=== PATIENT | male | born 1965 | race Caucasian/White ===

== ENCOUNTER 2018-05-21 14:30 | Emergency (ER) | payer OTHER, MEDICARE ==
--- NOTE | 2018-05-21 15:32 | ER Document Report ---
ED Medical Screen (RME) - General Chief Complaint: Chest Tightness Stated Complaint: LEFT LEG PAIN, LIGHT HEADED,NECK PAIN Time Seen by Provider: 05/21/18 15:25 Mode of Arrival: Wheelchair Information source: Patient Notes: 52-year-old male history of DVTs, coronary artery disease, hypertension, obstructive sleep apnea who presents to the emergency room with left calf and popliteal pain. Patient is concerned about a DVT. His medicines include Plavix and aspirin. He denies any chest pain or shortness of breath. He drove up from [employer] 3 weeks ago. Symptoms began yesterday. TRAVEL OUTSIDE OF THE [place] IN LAST 30 DAYS: No - Related Data Allergies/Adverse Reactions: No Known Allergies Allergy (Verified 05/21/18 14:31) Past Medical History - Social History Chew tobacco use (# tins/day): No Frequency of alcohol use: None Drug Abuse: None Renal/ Medical History: Denies: Hx Peritoneal Dialysis Physical Exam - Vital signs Vitals: Temp Pulse Resp BP Pulse Ox 98.3 F 69 20 109/70 93 05/21/18 14:47 05/21/18 14:47 05/21/18 14:47 05/21/18 14:47 05/21/18 14:47 Course - Vital Signs Vital signs: Temp Pulse Resp BP Pulse Ox 98.3 F 69 20 109/70 93 05/21/18 14:47 05/21/18 14:47 05/21/18 14:47 05/21/18 14:47 05/21/18 14:47
[2018-05-21] MEDS ORDERED: MORPHINE SULFATE 10 MG/ML INJ IV ONE (16:04)
--- NOTE | 2018-05-21 16:04 | ER Document Report ---
ED General - General Chief Complaint: Chest Tightness Stated Complaint: LEFT LEG PAIN, LIGHT HEADED,NECK PAIN Time Seen by Provider: 05/21/18 15:25 Mode of Arrival: Wheelchair Information source: Patient Notes: 52-year-old male 3 previous DVTs presents with complaints of left calf swelling and pain. Patient is on Plavix and baby aspirin for coronary artery disease and coronary stents. States he last had a DVT a year ago was put on Xarelto for only 2 weeks and then discharged off of it. Patient denies any any chest pain shortness of breath, it is noted on the previous provider notes that the patient had shortness of breath but he denies at this point. Patient drove here from [place] 3 weeks ago TRAVEL OUTSIDE OF THE [place] IN LAST 30 DAYS: No - HPI Onset: This morning Onset/Duration: Sudden Quality of pain: Sharp Severity: Moderate Pain Level: Denies Associated symptoms: Leg swelling Exacerbated by: Movement, Walking Relieved by: Denies Similar symptoms previously: Yes Recently seen / treated by doctor: Yes - Related Data Allergies/Adverse Reactions: No Known Allergies Allergy (Verified 05/21/18 14:31) Past Medical History - General Information source: Patient - Social History Smoking Status: Current Some Day Smoker Cigarette use (# per day): Yes Chew tobacco use (# tins/day): No Smoking Education Provided: No Frequency of alcohol use: None Drug Abuse: None Family History: Reviewed & Not Pertinent Patient has suicidal ideation: No Patient has homicidal ideation: No Renal/ Medical History: Denies: Hx Peritoneal Dialysis Review of Systems - Review of Systems Notes: REVIEW OF SYSTEMS: CONSTITUTIONAL : Denies fever, chills, or sweats. Denies recent illness. EENT: Denies eye, ear, throat, or mouth pain or symptoms. Denies nasal or sinus congestion or discharge. Denies throat, tongue, or mouth swelling or difficulty swallowing. CARDIOVASCULAR: Denies chest pain. Denies palpitations or racing or irregular heart beat. Denies ankle edema. RESPIRATORY: Denies cough, cold, or chest congestion. Denies shortness of breath, difficulty breathing, or wheezing. GASTROINTESTINAL: Denies abdominal pain or distention. Denies nausea, vomiting , or diarrhea. Denies blood in vomitus, stools, or per rectum. Denies black, tarry stools. Denies constipation. GENITOURINARY: Denies difficulty urinating, painful urination, burning, frequency, blood in urine, or discharge. MUSCULOSKELETAL: Admits to left leg pain swelling SKIN: Denies rash, lesions or sores. HEMATOLOGIC : Denies easy bruising or bleeding. LYMPHATIC: Denies swollen, enlarged glands. NEUROLOGICAL: Denies confusion or altered mental status. Denies passing out or loss of consciousness. Denies dizziness or lightheadedness. Denies headache. Denies weakness or paralysis or loss of use of either side. Denies problems with gait or speech. Denies sensory loss, numbness, or tingling. Denies seizures. PSYCHIATRIC: Denies anxiety or stress. Denies depression, suicidal ideation, or homicidal ideation. ALL OTHER SYSTEMS REVIEWED AND NEGATIVE. Dictation was performed using [employer] voice recognition software PHYSICAL EXAMINATION: GENERAL: Well-appearing, well-nourished and in no acute distress. HEAD: Atraumatic, normocephalic. EYES: Pupils equal round and reactive to light, extraocular movements intact, sclera anicteric, conjunctiva are normal. ENT: Nares patent, oropharynx clear without exudates. Moist mucous membranes. NECK: Normal range of motion, supple without lymphadenopathy LUNGS: Breath sounds clear to auscultation bilaterally and equal. No wheezes rales or rhonchi. HEART: Regular rate and rhythm without murmurs ABDOMEN: Soft, nontender, nondistended abdomen. No guarding, no rebound. No masses appreciated. Musculoskeletal: Pain upon palpation of the calf on the left NEUROLOGICAL: Cranial nerves grossly intact. Normal speech, normal gait. Normal sensory, motor exams PSYCH: Normal mood, normal affect. SKIN: Warm, Dry, normal turgor, no rashes or lesions noted. Physical Exam - Vital signs Vitals: Temp Pulse Resp BP Pulse Ox 98.3 F 69 20 109/70 93 05/21/18 14:47 05/21/18 14:47 05/21/18 14:47 05/21/18 14:47 05/21/18 14:47 Course - Re-evaluation Re-evalutation: 05/21/18 16:14 Patient's presentation is most consistent with a DVT, I do not understand why the patient is not on significant blood thinners 05/21/18 17:47 Patient's workup is quite benign, however I still do not understand why the patient is not on any blood thinners I will place the patient to have a referral with hematology After performing a Medical Screening Examination, I estimate there is LOW risk for RUPTURED ESOPHAGUS, PNEUMOTHORAX, PULMONARY EMBOLISM, ACUTE CORONARY SYNDROME, OR THORACIC AORTIC DISSECTION, thus I consider the discharge disposition reasonable. I have reevaluated this patient multiple times and no significant life threatening changes are noted. The patient and I have discussed the diagnosis and risks, and we agree with discharging home with close follow-up. We also discussed returning to the Emergency Department immediately if new or worsening symptoms occur. We have discussed the symptoms which are most concerning (e.g., bloody sputum, worsening pain or shortness of breath) that necessitate immediate return. - Vital Signs Vital signs: Temp Pulse Resp BP Pulse Ox 98.3 F 69 18 125/82 94 05/21/18 14:47 05/21/18 14:47 05/21/18 17:36 05/21/18 17:36 05/21/18 17:36 - Laboratory Result Diagrams: 05/21/18 16:02 05/21/18 16:02 Laboratory results interpreted by me: 05/21/18 05/21/18 16:02 16:02 RBC 5.78 H Hgb 17.2 H Creatine Kinase 305 H - Diagnostic Test Radiology reviewed: Image reviewed, Reports reviewed Discharge - Discharge Clinical Impression: Pain in leg, unspecified Qualifiers: Laterality: left Qualified Code(s): M79.605 - Pain in left leg Condition: Stable Disposition: HOME, SELF-CARE Instructions: Leg Pain Nonspecific ([facility]) Additional Instructions: Recommendations: Below are listed 3 primary care physicians who are affiliated with this hospital. In addition to their offices, these physicians will see you in the hospital if you are ever admitted. Dr Mahoney Address: [address] , [place] [address] Dr Larose Address: [address] , [place] [address] Dr. Dotty Dumas [address], [place] [phone] Referrals: ROBERTA AMBROCIO MD [ACTIVE STAFF] - Follow up tomorrow
[2018-05-21 16:13] LABS: ABSOLUTE EOSINOPHILS # (AUTO) 0.1 10^3/uL (0.0-0.6); ABSOLUTE LYMPHOCYTES (AUTO) 1.9 10^3/uL (0.5-4.7); ABSOLUTE MONOCYTES (AUTO) 0.7 10^3/uL (0.1-1.4); ABSOLUTE NEUT (AUTO) 4.3 10^3/uL (1.7-8.2); BASOPHILS % (AUTO) 0.7 % (0-2); EOSINOPHILS % (AUTO) 1.4 % (0-6); HEMATOCRIT 50.1 % (37.9-51.0); HEMOGLOBIN 17.2 g/dL (13.5-17.0); MEAN CORPUSCULAR HEMOGLOBIN 29.9 pg (27.0-33.4); MEAN CORPUSCULAR HGB CONC 34.5 g/dL (32.0-36.0); MEAN CORPUSCULAR VOLUME 87 fl (80-97); MONOCYTES % (AUTO) 9.4 % (3-13); PLATELET COUNT 191 10^3/uL (150-450); RED BLOOD COUNT 5.78 10^6/uL (4.35-5.55); RED CELL DISTRIBUTION WIDTH 13.9 % (11.5-14.0); SEGMENTED NEUTROPHILS % (AUTO) 61.5 % (42-78); TOTAL CELLS COUNTED % (AUTO) 100 %
[2018-05-21 17:14] LABS: ALANINE AMINOTRANSFERASE 33 U/L (21-72); ALBUMIN 3.8 g/dL (3.5-5.0); ALKALINE PHOSPHATASE 70 U/L (38-126); ANION GAP 12 (5-19); ASPARTATE AMINO TRANSFERASE 22 U/L (17-59); BILIRUBIN,DIRECT 0.3 mg/dL (0.0-0.4); BILIRUBIN,TOTAL 0.6 mg/dL (0.2-1.3); BLOOD UREA NITROGEN 11 mg/dL (7-20); CARBON DIOXIDE 22 mmol/L (22-30); CHLORIDE 107 mmol/L (98-107); CREATINE KINASE 305 U/L (55-170); GLUCOSE 92 mg/dL (75-110); POTASSIUM 4.4 mmol/L (3.6-5.0); SODIUM 141.1 mmol/L (137-145); TOTAL PROTEIN 6.3 g/dL (6.3-8.2)
[2018-05-21 17:26] LABS: CREATINE KINASE MB 2.61 ng/mL (<4.55); TROPONIN I < 0.012 ng/mL
--- NOTE | 2018-05-21 17:27 | RADIOLOGY REPORT (SQ) ---
EXAM DESCRIPTION: VENOUS UNILATERAL LOWER COMPLETED DATE/TIME: 05/21/2018 5:20 pm REASON FOR STUDY: lle swelling COMPARISON: None. TECHNIQUE: Dynamic and static soler scale and color images acquired of the left leg venous system. Se lected spectral images acquired with additional compression and augmentation maneuvers. The contralat eral common femoral vein and saphenofemoral junction were also imaged. Images stored on PACS. LIMITATIONS: None. FINDINGS: COMMON FEMORAL: Normal phasicity, compression and augmentation. No visualized echogenic ma terial on soler scale. No defects on color images. FEMORAL: Normal compression and augmentation. No visualized echogenic material on soler scale. No defe cts on color images. POPLITEAL: Normal compression, augmentation. No visualized echogenic material on soler scale. No defec ts on color images. CALF VESSELS: Normal compression, augmentation. No visualized echogenic material on soler scale. No de fects on color images. GSV and SSV: Normal compression, augmentation. No visualized echogenic material on soler scale. No def ects on color images. ANY DEEP VENOUS INSUFFICIENCY: Not evaluated. ANY EVIDENCE OF POPLITEAL CYST: No. OTHER: No other significant finding. CONTRALATERAL COMMON FEMORAL VEIN AND SAPHENOFEMORAL JUNCTION: Normal phasicity, compression and augmentation. No visualized echogenic material on soler scale. No de fects on color images. IMPRESSION: NO EVIDENCE DVT OR SVT IN THE LEFT LEG. TECHNICAL DOCUMENTATION: JOB ID: [id number] [email or web address]- All Rights Reserved Reading location - IP/workstation name: [email or web address]
--- NOTE | 2018-05-21 18:32 | EKG REPORT ---
SEVERITY:- ABNORMAL ECG - SINUS RHYTHM PROBABLE INFERIOR INFARCT, AGE INDETERMINATE : Confirmed by: Kristen Mckenzie MD 21-May-2018 18:31:00
[2018-05-21 18:37] VITALS: BP 124/78
== END 2018-05-21 18:00 | disposition home or self-care (01) ==
LOC: ER 14:30
DX: M79.662 Pain in left lower leg (principal); M79.89 Other specified soft tissue disorders; I25.10 Atherosclerotic heart disease of native coronary artery without angina pectoris; Z95.5 Presence of coronary angioplasty implant and graft; Z79.02 Long term (current) use of antithrombotics/antiplatelets; Z79.82 Long term (current) use of aspirin; Z86.718 Personal history of other venous thrombosis and embolism; F17.210 Nicotine dependence, cigarettes, uncomplicated
CPT/HCPCS: 93005; 99284; 96374; 36415; 82553; 82550; 85025; 80053; 84484; 93971; 93010; J2270

== ENCOUNTER 2018-06-15 20:45 | Emergency (ER) | payer OTHER, MEDICARE ==
[2018-06-15 23:42] LABS: APPEARANCE,URINE CLEAR; BILIRUBIN,URINE NEGATIVE (NEGATIVE); COLOR,URINE YELLOW; GLUCOSE, URINE NEGATIVE (NEGATIVE); KETONES,URINE NEGATIVE (NEGATIVE); LEUKOCYTE ESTERASE,URINE NEGATIVE (NEGATIVE); NITRITE,URINE NEGATIVE (NEGATIVE); PROTEIN,URINE NEGATIVE (NEGATIVE); URINE SPECIFIC GRAVITY 1.019
[2018-06-15] MEDS ORDERED: KETOROLAC TROMETHAMINE INJ/PF 30 MG/1 ML SDV IV ONE (23:51)
[2018-06-15] MEDS ORDERED: ONDANSETRON HCL INJ/PF 4 MG/2 ML SDV IV ONE (23:51)
[2018-06-15] MEDS ORDERED: DIAZEPAM INJ 10 MG/2 ML DISP.SYRIN IV ONE (23:52)
--- NOTE | 2018-06-15 23:53 | ER Document Report ---
ED General - General Mode of Arrival: Ambulatory Information source: Patient TRAVEL OUTSIDE OF THE [place] IN LAST 30 DAYS: No <DAMIEN BARKLEY - Last Filed: 06/16/18 00:42> <JONATAN SUMMERS - Last Filed: 06/16/18 02:16> - General Chief Complaint: Flank Pain Stated Complaint: BACK PAIN Time Seen by Provider: 06/15/18 22:58 Notes: 52-year-old male that presents to the emergency department today with complaints of left sided flank pain. Patient states it hurts to move as well. Patient has had the pain for approximately 5 days. Patient states he has a history of UTIs but no history of kidney stones. Patient denies any cough or shortness of breath. (DAMIEN BARKLEY) - Related Data Allergies/Adverse Reactions: No Known Allergies Allergy (Verified 05/21/18 14:31) Past Medical History - General Information source: Patient - Social History Smoking Status: Current Some Day Smoker Cigarette use (# per day): Yes Frequency of alcohol use: Social Drug Abuse: None Lives with: Family Family History: Reviewed & Not Pertinent - Past Medical History Cardiac Medical History: Reports: Hx Hypercholesterolemia GI Medical History: Reports: Hx Gastroesophageal Reflux Disease Past Surgical History: Reports: Hx Cardiac Surgery - STENT <DAMIEN BARKLEY - Last Filed: 06/16/18 00:42> Review of Systems - Review of Systems Constitutional: No symptoms reported EENT: No symptoms reported Cardiovascular: No symptoms reported Respiratory: denies: Cough, Short of breath Gastrointestinal: No symptoms reported Genitourinary: See HPI, Flank pain - left Male Genitourinary: No symptoms reported Musculoskeletal: No symptoms reported Skin: No symptoms reported Hematologic/Lymphatic: No symptoms reported Neurological/Psychological: No symptoms reported -: Yes All other systems reviewed and negative <DAMIEN BARKLEY - Last Filed: 06/16/18 00:42> Physical Exam - Vital signs Interpretation: Normal - General General appearance: Appears well, Alert - HEENT Head: Normocephalic, Atraumatic Eyes: Normal Pupils: PERRL - Respiratory Respiratory status: No respiratory distress Chest status: Nontender Breath sounds: Normal Chest palpation: Normal - Cardiovascular Rhythm: Regular Heart sounds: Normal auscultation Murmur: No - Abdominal Inspection: Normal Distension: No distension Bowel sounds: Normal Tenderness: Nontender Organomegaly: No organomegaly - Back Back: Normal, Tender - Tenderness to palpation over left SI joint and left buttock that is reproducible. - Extremities General upper extremity: Normal inspection, Nontender, Normal color, Normal ROM , Normal temperature General lower extremity: Normal inspection, Nontender, Normal color, Normal ROM , Normal temperature, Normal weight bearing. No: Evelyn's sign - Neurological Neuro grossly intact: Yes Cognition: Normal Orientation: AAOx4 [place] Coma Scale Eye Opening: Spontaneous Rudy Coma Scale Verbal: Oriented [place] Coma Scale Motor: Obeys Commands [place] Coma Scale Total: 15 Speech: Normal Motor strength normal: LUE, RUE, LLE, RLE Sensory: Normal - Psychological Associated symptoms: Normal affect, Normal mood - Skin Skin Temperature: Warm Skin Moisture: Dry Skin Color: Normal <JONATAN SUMMERS - Last Filed: 06/16/18 02:16> - Vital signs Vitals: Temp Pulse Resp BP Pulse Ox 98.1 F 84 18 153/98 H 95 06/15/18 20:46 06/15/18 20:46 06/15/18 20:46 06/15/18 20:46 06/15/18 20:46 Course <DAMIEN BARKLEY - Last Filed: 06/16/18 00:42> - Laboratory Result Diagrams: 06/16/18 00:51 06/16/18 00:51 <JONATAN SUMMERS - Last Filed: 06/16/18 02:16> - Re-evaluation Re-evalutation: 06/16/18 02:14 Patient is a 52-year-old male who comes in complaining of lower left back pain which she has had before and is similar to his sciatica in the past. Patient is tender to palpation pain is worse with movement. He walks with a cane. He has full range of motion. He is neurovascularly intact. Patient had a recent venous Doppler that was negative for DVT. No acute findings on blood work, urine, or CT. Patient's insurance will kick in on 24 June at which point he will be able to get a primary care doctor. He will be discharged home with Flexeril, Lidoderm, and a Medrol Dosepak. He is not diabetic. He is agreeable to this plan and is very grateful that he does not have any kidney issues this evening. Return if any worsening or concerning symptoms. (JONATAN SUMMERS) - Vital Signs Vital signs: Temp Pulse Resp BP Pulse Ox 98.1 F 84 18 153/98 H 95 06/15/18 20:46 06/15/18 20:46 06/15/18 20:46 06/15/18 20:46 06/15/18 20:46 - Laboratory Laboratory results interpreted by me: 06/15/18 06/16/18 23:28 00:51 RBC 5.82 H Hgb 17.6 H Urine Blood SMALL H Urine Urobilinogen 2.0 H Discharge <DAMIEN BARKLEY - Last Filed: 06/16/18 00:42> <JONATAN SUMMERS - Last Filed: 06/16/18 02:16> - Discharge Clinical Impression: Acute exacerbation of chronic low back pain Condition: Stable Disposition: HOME, SELF-CARE Instructions: Family Physicians / Practices, Low Back Pain ([facility]) Prescriptions: Cyclobenzaprine HCl [Flexeril 10 mg Tablet] 10 mg PO TIDP PRN #15 tab PRN Reason: Lidocaine [Lidoderm 5% (700 mg) Transdermal Patch] 1 patch TP DAILY #30 adh..patch Methylprednisolone [Medrol Dosepack (4 mg/Tab) 21 Tab/Dosepak] 4 mg PO ASDIR PRN #21 tab.ds.pk PRN Reason: Forms: Return to Work Scribe Attestation: 06/16/18 02:15 I personally performed the services described in the documentation, reviewed and edited the documentation which was dictated to the scribe in my presence, and it accurately records my words and actions. (JONATAN SUMMERS) Scribe Documentation - Scribe Written by Tamie:: Tamie Moon, 06/16/2018 0055 acting as scribe for :: Татьяна <DAMIEN BARKLEY - Last Filed: 06/16/18 00:42>
[2018-06-16] MEDS ORDERED: MORPHINE SULFATE 10 MG/ML INJ IV ONE (00:54)
--- NOTE | 2018-06-16 00:56 | RADIOLOGY REPORT (SQ) ---
EXAM DESCRIPTION: CT ABDOMEN WITHOUT IV CONTRAST COMPLETED DATE/TME: 06/15/2018 23:01 CLINICAL HISTORY: L flank pain COMPARISON: None Available. TECHNIQUE: CT of the abdomen and pelvis without IV contrast. Evaluation of the solid organs and vasculature is suboptimal due to lack of IV contrast. DLP: 1483.17 mGy-cm FINDINGS: Lung Bases: The visualized lung bases are clear. Bones: No destructive bone lesions identified. Posterior candy and screw fixation at L2-S1. Mild endplate spondylosis of the lumbar spine. Abdomen: Liver: The liver has normal size and decreased density. Gallbladder: No calcified gallstones. Spleen, Pancreas, and Adrenal Glands: The spleen, pancreas, and adrenal glands are unremarkable. Kidneys: The kidneys have normal size and contour without evidence of hydronephrosis. No obstructing ureteral calculi. Vasculature: The aorta and IVC have normal caliber and position. Stomach: The stomach and duodenum have normal course. Other: No free intraperitoneal air. No free fluid or lymphadenopathy. Pelvis: Bladder: Urinary bladder is unremarkable. Bowel: No dilated loops of large or small bowel. Scattered diverticula of the colon. No pericolic inflammatory change. Appendix: Normal appendix. Pelvis: Prostate is not enlarged. IMPRESSION: 1. No acute inflammatory or obstructive process identified. 2. Hepatic steatosis. 3. Diverticulosis without evidence of acute diverticulitis. This exam was performed according to our departmental dose-optimization program, which includes automated exposure control, adjustment of the mA and/or kV according to patient size and/or use of iterative reconstruction technique.
[2018-06-16 01:07] LABS: ABSOLUTE BASOPHILS # (AUTO) 0.1 10^3/uL (0.0-0.2); ABSOLUTE EOSINOPHILS # (AUTO) 0.1 10^3/uL (0.0-0.6); ABSOLUTE LYMPHOCYTES (AUTO) 2.1 10^3/uL (0.5-4.7); ABSOLUTE MONOCYTES (AUTO) 0.7 10^3/uL (0.1-1.4); ABSOLUTE NEUT (AUTO) 5.6 10^3/uL (1.7-8.2); BASOPHILS % (AUTO) 1.1 % (0-2); EOSINOPHILS % (AUTO) 1.3 % (0-6); HEMATOCRIT 50.4 % (37.9-51.0); HEMOGLOBIN 17.6 g/dL (13.5-17.0); LYMPHOCYTES % (AUTO) 24.3 % (13-45); MEAN CORPUSCULAR HEMOGLOBIN 30.3 pg (27.0-33.4); MEAN CORPUSCULAR VOLUME 87 fl (80-97); MONOCYTES % (AUTO) 8.2 % (3-13); PLATELET COUNT 187 10^3/uL (150-450); RED BLOOD COUNT 5.82 10^6/uL (4.35-5.55); RED CELL DISTRIBUTION WIDTH 13.9 % (11.5-14.0); SEGMENTED NEUTROPHILS % (AUTO) 65.1 % (42-78); TOTAL CELLS COUNTED % (AUTO) 100 %; WHITE BLOOD COUNT 8.6 10^3/uL (4.0-10.5)
[2018-06-16 01:31] LABS: ANION GAP 14 (5-19); BLOOD UREA NITROGEN 18 mg/dL (7-20); CALCIUM 9.4 mg/dL (8.4-10.2); CARBON DIOXIDE 27 mmol/L (22-30); CHLORIDE 103 mmol/L (98-107); GLUCOSE 88 mg/dL (75-110); POTASSIUM 4.2 mmol/L (3.6-5.0); SODIUM 143.7 mmol/L (137-145)
[2018-06-16] MEDS ORDERED: HYDROCODONE/ACETAMINOPHEN 5-325 MG (6 TAB/ER DISP) PO PRN (01:44)
[2018-06-16 02:39] VITALS: BP 121/76
== END 2018-06-16 02:39 | disposition home or self-care (01) ==
LOC: ER 20:45
DX: M54.5 Low back pain (principal); G89.29 Other chronic pain; R10.9 Unspecified abdominal pain; F17.210 Nicotine dependence, cigarettes, uncomplicated; Z87.440 Personal history of urinary (tract) infections; Z95.5 Presence of coronary angioplasty implant and graft
CPT/HCPCS: 99284; 96374; 96375; 36415; 85025; 80048; 81001; 76380; J3360; J1885; J2270; J2405

== ENCOUNTER 2018-07-27 00:20 | Emergency (ER) | payer MEDICARE, OTHER ==
[2018-07-27 00:28] VITALS: BP 130/84
[2018-07-27] MEDS ORDERED: DOXYCYCLINE HYCLATE 100 MG TABLET PO ONE (00:50)
[2018-07-27] MEDS ORDERED: LIDOCAINE 1%/EPINEPHRINE INJ 20 ML VIAL INJ ONE (00:50)
--- NOTE | 2018-07-27 01:47 | ER Document Report ---
ED General - General Chief Complaint: Neck Pain >24hrs old Stated Complaint: NECK PAIN Time Seen by Provider: 07/27/18 00:42 Notes: Patient is a 53-year-old male presents with complaint of a lump over his left posterior neck. He says it started in the last 24 hours. He says he does have previous history of neck surgeries. He said infections in his neck before. He denies any fevers. No vomiting. No weakness or numbness into his upper extremities. No recent trauma or injuries. No other complaints at this time. TRAVEL OUTSIDE OF THE [place] IN LAST 30 DAYS: No - Related Data Allergies/Adverse Reactions: No Known Allergies Allergy (Verified 07/27/18 00:25) Past Medical History - Social History Smoking Status: Former Smoker Chew tobacco use (# tins/day): No Frequency of alcohol use: None Drug Abuse: None Family History: Reviewed & Not Pertinent Patient has suicidal ideation: No Patient has homicidal ideation: No - Past Medical History Cardiac Medical History: Reports: Hx Hypercholesterolemia Renal/ Medical History: Denies: Hx Peritoneal Dialysis GI Medical History: Reports: Hx Gastroesophageal Reflux Disease Past Surgical History: Reports: Hx Cardiac Surgery - STENT Review of Systems - Review of Systems Notes: My Normal Review Basic REVIEW OF SYSTEMS: CONSTITUTIONAL : Denies fever, chills, or sweats. Denies recent illness. EENT: Left-sided neck pain. CARDIOVASCULAR: Denies chest pain. MUSCULOSKELETAL: Left sided neck pain SKIN: Denies rash or skin lesions. NEUROLOGICAL: Denies sensory or motor loss. ALL OTHER SYSTEMS REVIEWED AND NEGATIVE. Physical Exam - Vital signs Vitals: Temp Pulse Resp BP Pulse Ox 98.3 F 91 26 H 130/84 H 93 07/27/18 00:27 07/27/18 00:27 07/27/18 00:27 07/27/18 00:27 07/27/18 00:27 - Notes Notes: General Appearance: Well nourished, alert, cooperative, no acute distress, no obvious discomfort. Vitals: reviewed, See vital signs table. Head: no swelling or tenderness to the head Eyes: PERRL, EOMI, Conjuctiva clear Neck: Supple, patient has a localized subcutaneous abscess over the left posterior neck which is the location where the patient's pain is. Abscess approximately 2 cm in diameter. Erythema is localized to the abscess itself. Extremities: strength 5/5 in all extremities, good pulses in all extremities, no swelling or tenderness in the extremities, no edema. Neuro: speech clear, oriented x 3, normal affect, responds appropriately to questions. Course - Re-evaluation Re-evalutation: 07/27/18 06:25 I did do a bedside ultrasound the abscess to make sure there was a fluid collection containing subcutaneous abscess. It was. I did numb the abscess like and incised and drained it. It appears that it is an infected sebaceous cyst based on the drainage. I will place patient on doxycycline. I informed the patient to return to the ER in 2 days for packing removal and reevaluation of the abscess. I encouraged her return to ER immediately for spreading redness , swelling, fevers, or if he feels it is worsening in any way. Informed him if this returns in the future he may eventually have to see a retail route supervisor about having removal of the capsule suspect this again is related to infected sebaceous cyst. Dictation of this chart was performed using voice recognition software; therefore, there may be some unintended grammatical errors. - Vital Signs Vital signs: Temp Pulse Resp BP Pulse Ox 98.3 F 91 26 H 130/84 H 93 07/27/18 00:27 07/27/18 00:27 07/27/18 00:27 07/27/18 00:27 07/27/18 00:27 Procedures - Incision and Drainage Left Neck Type: Simple mL's of anesthetic: 1 Blade size: 11 I&D procedure: Chlorprep applied Incision Method: Incision made by scalpel Amount/type of drainage: 3mls of purulent and sebasceous material Discharge - Discharge Clinical Impression: Abscess Condition: Good Disposition: HOME, SELF-CARE Additional Instructions: Please follow up with your doctor or the ER on Tuesday for reevaluation of the wound and removal of the packing. Please take the anitbiotic as prescribed. Doxycycline will make your skin more sensitive to the sun so please make sure you keep your skin covered or wear sunscreen whenever out in the sun. Please return to the ER immediately if you have fevers, spreading redness or spreading swelling. Prescriptions: Doxycycline Hyclate 100 mg PO BID #14 capsule
== END 2018-07-27 02:02 | disposition home or self-care (01) ==
LOC: ER 00:20
PROC: 0H94XZZ Drainage of Neck Skin, External Approach (ICD-10-PCS; principal; 2018-07-27)
DX: L02.11 Cutaneous abscess of neck (principal); M54.2 Cervicalgia; E78.00 Pure hypercholesterolemia, unspecified
CPT/HCPCS: 99283; 10060; A6266; J3490

== ENCOUNTER 2018-07-29 13:18 | Emergency (ER) | payer OTHER ==
--- NOTE | 2018-07-29 14:12 | ER Document Report ---
HPI - HPI Pain Level: 5 Notes: Patient is a 53-year-old male with a previous history of MRSA who presents to the ED complaining of continued pain and increased swelling to the abscess to the back of his neck that was incised and drained 2 days ago. Patient states that he believes that the whole most of close back up as he now feels a hard spot in that area and some increased pain. He has otherwise has not noticed any red streaking. He is eating and drinking without any difficulties. His PCM placed him on Bactrim in lieu of doxy. Denies any headache, fever, URI, sore throat, chest pain, palpitations, syncope, cough, shortness of breath, wheeze, dyspnea, abdominal pain, nausea/vomiting/diarrhea, urinary retention, dysuria, hematuria. - ROS Systems Reviewed and Negative: Yes All other systems reviewed and negative Past Medical History - Social History Smoking Status: Current Some Day Smoker Chew tobacco use (# tins/day): No Frequency of alcohol use: None Drug Abuse: None Family History: Reviewed & Not Pertinent Patient has suicidal ideation: No Patient has homicidal ideation: No - Past Medical History Cardiac Medical History: Reports: Hx Hypercholesterolemia Renal/ Medical History: Denies: Hx Peritoneal Dialysis GI Medical History: Reports: Hx Gastroesophageal Reflux Disease Past Surgical History: Reports: Hx Cardiac Surgery - STENT, Hx Neurologic Surgery Vertical Provider Document - CONSTITUTIONAL Agree With Documented VS: Yes Notes: PHYSICAL EXAMINATION: GENERAL: Well-appearing, well-nourished and in no acute distress. HEAD: Atraumatic, normocephalic. EYES: Pupils equal round and reactive to light, extraocular movements intact, sclera anicteric, conjunctiva are normal. ENT: Nares patent and without discharge. oropharynx clear without exudates. No tonsilar hypertrophy or erythema. Moist mucous membranes. NECK: Normal range of motion, supple without lymphadenopathy LUNGS: Breath sounds clear to auscultation bilaterally and equal. No wheezes rales or rhonchi. HEART: Regular rate and rhythm without murmurs, rubs, gallops. ABDOMEN: Soft, nontender, nondistended abdomen. No guarding, no rebound. No masses appreciated. Normal bowel sounds present. No CVA tenderness bilaterally. Musculoskeletal: FROM to passive/active. Strength 5+/5. Extremities: No cyanosis, clubbing, or edema b/l. Peripheral pulses 2+. Capillary refill less than 3 seconds. NEUROLOGICAL: Cranial nerves grossly intact. Normal speech, normal gait. PSYCH: Normal mood, normal affect. SKIN: posterior neck: there is a 2cm abscess noted with induration and tenderness. Scant purulence noted. it appears as though the prev I&D may have closed. No streaks. - INFECTION CONTROL TRAVEL OUTSIDE OF THE [place] IN LAST 30 DAYS: No Course - Re-evaluation Re-evalutation: 07/29/18 14:40 Patient is an afebrile, well-hydrated, 53-year-old male who presents to the ED with an abscess of sebaceous cyst to the posterior left neck. Vitals are acceptable without any significant tachycardia, tachypnea, or hypoxia. PE is otherwise unremarkable. It was thoroughly irrigated and cleansed. Incision and drainage was performed successfully without any complications and packing was placed. Wound culture was obtained. Wound dressing was placed and wound instructions reviewed. Patient is otherwise nontoxic-appearing and is tolerating p.o. without any difficulties. No further labs or imaging warranted. I will send him home with a prescription for Keflex to add to his Bactrim, patient has already discontinued his doxycycline as his PCM placed him on Bactrim. Recheck with your PCM in 2-3 days return to the ED with any worsening/concerning symptoms otherwise as reviewed in discharge. Patient is in agreement. - Vital Signs Vital signs: Temp Pulse Resp BP Pulse Ox 98.6 F 78 24 H 128/77 H 94 07/29/18 13:22 07/29/18 13:22 07/29/18 13:22 07/29/18 13:22 07/29/18 13:22 Procedures - Incision and Drainage Posterior Neck Time completed: 14:30 - Patient tolerated procedure well without any complications Type: Simple Anesthetic type: 1% Lidocaine mL's of anesthetic: 3 Blade size: 11 I&D procedure: Iodoform packing placed, Other - chlorhexadine/saline Incision Method: Incision made by scalpel Amount/type of drainage: scant purulent, sebaceous Discharge - Discharge Clinical Impression: Abscess Condition: Stable Disposition: HOME, SELF-CARE Instructions: Abscess ([facility]), Cephalexin ([facility]), Post Incision and Drainage Additional Instructions: Do not shower or bathe for 24 hours. After 24 hours she may shower but no submersion of the wound under water. Keep the original dressing on the wound for 24 hours unless the drainage soaks through. Change the dressing daily thereafter and use a small amount of triple antibiotic ointment over the open wound. See your PCM in 2-3 days for recheck and continue direction for wound packing. Monitor for any signs of worsening pain or redness, streaks, and/or fever. Return to the ED if noticing any of the above symptoms or as needed. Take medications as directed. Prescriptions: Cephalexin Monohydrate [Keflex 500 mg Capsule] 500 mg PO TID #30 capsule Forms: Elevated Blood Pressure, Smoking Cessation Education Referrals: TAWNYA GUO MD [ACTIVE STAFF] - Follow up as needed
[2018-07-29 15:05] VITALS: BP 137/83
== END 2018-07-29 15:05 | disposition home or self-care (01) ==
LOC: ER 13:18
PROC: 0H94XZZ Drainage of Neck Skin, External Approach (ICD-10-PCS; principal; 2018-07-29)
DX: L02.11 Cutaneous abscess of neck (principal); Z86.14 Personal history of Methicillin resistant Staphylococcus aureus infection; F17.200 Nicotine dependence, unspecified, uncomplicated
CPT/HCPCS: 99283; 87070; 87205; 87077; 10060; A6266

== ENCOUNTER → 2018-09-05 | Day surgery (SDC) | payer MEDICARE, OTHER | LOC: OROUT 10:59 | PROVIDERS: ATTEND Internal Medicine Gastroenterology | DX: R69 Illness, unspecified (principal) ==

== ENCOUNTER 2018-10-18 05:00 | Emergency (ER) | payer OTHER, MEDICARE ==
[2018-10-18] MEDS ORDERED: ASPIRIN 81 MG TABLET, CHEWABLE PO ONE (05:20)
[2018-10-18 05:52] LABS: ABSOLUTE BASOPHILS # (AUTO) 0.1 10^3/uL (0.0-0.2); ABSOLUTE EOSINOPHILS # (AUTO) 0.1 10^3/uL (0.0-0.6); ABSOLUTE LYMPHOCYTES (AUTO) 2.2 10^3/uL (0.5-4.7); ABSOLUTE MONOCYTES (AUTO) 0.8 10^3/uL (0.1-1.4); ABSOLUTE NEUT (AUTO) 5.1 10^3/uL (1.7-8.2); BASOPHILS % (AUTO) 0.7 % (0-2); EOSINOPHILS % (AUTO) 1.4 % (0-6); HEMATOCRIT 47.4 % (37.9-51.0); HEMOGLOBIN 16.5 g/dL (13.5-17.0); LYMPHOCYTES % (AUTO) 26.6 % (13-45); MEAN CORPUSCULAR HGB CONC 34.8 g/dL (32.0-36.0); MEAN CORPUSCULAR VOLUME 89 fl (80-97); MONOCYTES % (AUTO) 9.5 % (3-13); PLATELET COUNT 165 10^3/uL (150-450); RED BLOOD COUNT 5.32 10^6/uL (4.35-5.55); RED CELL DISTRIBUTION WIDTH 13.7 % (11.5-14.0); SEGMENTED NEUTROPHILS % (AUTO) 61.8 % (42-78); TOTAL CELLS COUNTED % (AUTO) 100 %; WHITE BLOOD COUNT 8.2 10^3/uL (4.0-10.5)
[2018-10-18 05:58] LABS: INTERNATIONAL RATION (INR) 0.98; PROTHROMBIN TIME 13.5 SEC (11.4-15.4)
--- NOTE | 2018-10-18 06:06 | RADIOLOGY REPORT (SQ) ---
EXAM DESCRIPTION: XR CHEST 1 VIEW COMPLETED DATE/TME: 10/18/2018 05:20 CLINICAL HISTORY: 53 years, Male, CP COMPARISON: None. NUMBER OF VIEWS: 1 TECHNIQUE: Portable chest LIMITATIONS: None. FINDINGS: The heart size is normal. Lungs are clear. No pneumothorax. Mild elevation left hemidiaphragm. IMPRESSION: No acute cardiopulmonary process copyright 2010 [employer]- All Rights Reserved
[2018-10-18 06:14] LABS: ALANINE AMINOTRANSFERASE 28 U/L (21-72); ALBUMIN 3.8 g/dL (3.5-5.0); ALKALINE PHOSPHATASE 61 U/L (38-126); ANION GAP 8 (5-19); ASPARTATE AMINO TRANSFERASE 35 U/L (17-59); BILIRUBIN,DIRECT 0.3 mg/dL (0.0-0.4); BILIRUBIN,TOTAL 0.7 mg/dL (0.2-1.3); BLOOD UREA NITROGEN 15 mg/dL (7-20); CALCIUM 9.1 mg/dL (8.4-10.2); CARBON DIOXIDE 26 mmol/L (22-30); CHLORIDE 104 mmol/L (98-107); CREATINE KINASE 298 U/L (55-170); GLUCOSE 110 mg/dL (75-110); POTASSIUM 4.1 mmol/L (3.6-5.0); SODIUM 137.5 mmol/L (137-145)
[2018-10-18 06:26] LABS: CREATINE KINASE MB 5.06 ng/mL (<4.55)
[2018-10-18 06:28] LABS: TROPONIN I 0.723 ng/mL
--- NOTE | 2018-10-18 07:39 | ER Document Report ---
ED Cardiac - General Chief Complaint: Chest Pain Stated Complaint: CHEST PAIN Time Seen by Provider: 10/18/18 05:54 Mode of Arrival: Ambulatory Information source: Patient TRAVEL OUTSIDE OF THE [place] IN LAST 30 DAYS: No - HPI Patient complains to provider of: Other - 53-year-old man with a history of a past [place] while in [place] who presents for evaluation of crushing chest pain yesterday and then this morning for which she took an extra dose of his blood pr essure medication as well as nitroglycerin which improved his pain. He was having persistent pain into the morning which was crushing in nature prompting him to come to the emergency room for further evaluation. He denies recent illnesses, fevers, chills, lightheadedness, does endorse diaphoresis and nausea. - Related Data Allergies/Adverse Reactions: meperidine [From Demerol] Allergy (Verified 09/04/18 11:34) Past Medical History - General Information source: Patient - Social History Smoking Status: Current Some Day Smoker Smoking Education Provided: Yes Family History: Reviewed & Not Pertinent Patient has suicidal ideation: No Patient has homicidal ideation: No - Past Medical History Cardiac Medical History: Reports: Hx Coronary Artery Disease, Hx Heart Attack - 2012, Hx Hypercholesterolemia Denies: Hx Hypertension Pulmonary Medical History: Denies: Hx Asthma, Hx Bronchitis, Hx COPD, Hx Pneumonia Neurological Medical History: Denies: Hx Cerebrovascular Accident, Hx Seizures Renal/ Medical History: Denies: Hx Peritoneal Dialysis GI Medical History: Reports: Hx Gastroesophageal Reflux Disease Musculoskeletal Medical History: Denies Hx Arthritis Past Surgical History: Reports: Hx Cardiac Surgery - STENT, Hx Neurologic Surgery - Immunizations Hx Diphtheria, Pertussis, Tetanus Vaccination: No Hx Pneumococcal Vaccination: 10/24/14 Review of Systems - Review of Systems -: Yes All other systems reviewed and negative Physical Exam - Vital signs Vitals: Temp Pulse Resp BP Pulse Ox 97.6 F 61 22 H 137/72 H 95 10/18/18 05:22 10/18/18 05:22 10/18/18 05:22 10/18/18 05:22 10/18/18 05:22 - General General appearance: Appears well, Alert - HEENT Head: Normocephalic, Atraumatic Eyes: Normal Pupils: PERRL - Respiratory Respiratory status: No respiratory distress Chest status: Nontender Breath sounds: Normal Chest palpation: Normal - Cardiovascular Rhythm: Regular Heart sounds: Normal auscultation Murmur: No - Abdominal Inspection: Morbidly Obese Distension: No distension Tenderness: Nontender - Back Back: Normal - Extremities General upper extremity: Normal inspection, Nontender, Normal color, Normal ROM, Normal temperature General lower extremity: Normal inspection, Nontender, Normal color, Normal ROM, Normal temperature, Normal weight bearing. No: Evelyn's sign - Neurological Neuro grossly intact: Yes Cognition: Normal Orientation: AAOx4 Rudy Coma Scale Eye Opening: Spontaneous Anson Coma Scale Verbal: Oriented Anson Coma Scale Motor: Obeys Commands Anson Coma Scale Total: 15 Speech: Normal Motor strength normal: LUE, RUE, LLE, RLE Sensory: Normal - Psychological Associated symptoms: Normal affect, Normal mood Course - Re-evaluation Re-evalutation: This gentleman presented with chest pain similar to previous episodes of his heart attack in the past which required intervention. On the emergency department he began to have return of chest pain, he was given nitroglycerin which only modestly improved his symptoms. His EKG was concerning as it demonstrated depressions in association with his story and risk factors as he had a previous VA in the past at a young age, is morbidly obese has hyperlipidemia and hypertension. After receiving his initial troponin 0.75 I contacted on-call plate worker helper Dr. Mckenzie in relation to this gentlemen's care week concur that he should be transported for cath. I contacted [facility]. As there was a delay in response by [facility] after initial call approximately 25 minutes in this gentleman has ongoing chest pain I believe he needs rapid transport I did contact [facility] who agrees to accept this patient in transport semi-urgently for catheterization today. We discussed transport options he will be transported ALS on a continuing heparin infusion. Because of his ongoing pain and positive troponin I did initiate heparin for this gentleman. He had a return of pain at which time he was given morphine and repeated doses to obtain an analgesic effect. At this time he was hemodynamically stable, he was placed on 2 L nasal cannula to maintain a saturation of around 97% in his room. His EKG was repeated which did not show developing dynamic changes though it did continue to show concerning changes suggestive of ongoing ischemia. His repeat troponin is up trending. At the time of transport this gentleman continued to be hemodynamically stable and a troponin was drawn just prior to departure. I did update [facility] in relation to this gentlemen's of trending troponin. He was however chest pain-free at the time of transport. - Vital Signs Vital signs: Temp Pulse Resp BP Pulse Ox 97.6 F 61 18 119/79 95 10/18/18 13:49 10/18/18 05:22 10/18/18 13:49 10/18/18 13:49 10/18/18 13:49 - Laboratory Result Diagrams: 10/18/18 05:45 10/18/18 05:45 Laboratory results interpreted by me: 10/18/18 10/18/18 10/18/18 05:45 05:45 13:50 APTT 38.5 H Creatine Kinase 298 H CK-MB (CK-2) 5.06 H Total Protein 6.0 L Critical Care Note - Critical Care Note Total time excluding time spent on procedures (mins): 40 Discharge - Discharge Clinical Impression: NSTEMI (non-ST elevated myocardial infarction) Chest pain Qualifiers: Chest pain type: unspecified Qualified Code(s): R07.9 - Chest pain, unspecified Condition: Stable Disposition: [facility]
[2018-10-18] MEDS ORDERED: ALPRAZOLAM 0.5 MG TABLET PO ONE (08:15)
[2018-10-18] MEDS ORDERED: HEPARIN SOD (PORCINE) 1,000 UNIT/ML 10 ML VIAL IV ONE (08:53)
[2018-10-18] MEDS ORDERED: HEPARIN SODIUM,PORCINE/D5W 25,000 UNIT/250 ML RTUINJ IV PRN (08:53)
[2018-10-18] MEDS ORDERED: MORPHINE SULFATE 10 MG/ML INJ IV ONE (09:43)
[2018-10-18] MEDS ORDERED: HEPARIN SOD (PORCINE) 1,000 UNIT/ML 10 ML VIAL IV PRN (11:55)
[2018-10-18] MEDS ORDERED: ONDANSETRON HCL INJ/PF 4 MG/2 ML SDV IV ONE (12:06)
[2018-10-18] MEDS: NITROGLYCERIN 0.4 MG/TAB 25 TAB/BOTTLE SL PRN ×2 (12:39→13:16)
--- NOTE | 2018-10-18 13:16 | EKG REPORT ---
SEVERITY:- ABNORMAL ECG - SINUS RHYTHM INFERIOR INFARCT, AGE INDETERMINATE : Confirmed by: Talita Loya 18-Oct-2018 13:15:28
--- NOTE | 2018-10-18 13:16 | EKG REPORT ---
SEVERITY:- ABNORMAL ECG - SINUS RHYTHM PROBABLE INFERIOR INFARCT, AGE INDETERMINATE : Confirmed by: Talita Loya 18-Oct-2018 13:15:33
[2018-10-18 14:04] VITALS: BP 119/79
== END 2018-10-18 13:50 | disposition short-term general hospital (02) ==
LOC: ER 05:00
DX: I21.4 Non-ST elevation (NSTEMI) myocardial infarction (principal); R07.9 Chest pain, unspecified; R61 Generalized hyperhidrosis; R11.0 Nausea; F17.200 Nicotine dependence, unspecified, uncomplicated; I10 Essential (primary) hypertension; I25.10 Atherosclerotic heart disease of native coronary artery without angina pectoris; Z95.5 Presence of coronary angioplasty implant and graft; Z79.899 Other long term (current) drug therapy
CPT/HCPCS: 93005; 99285; 96375; 96365; 96366; 36415; 82553; 82550; 85025; 85610; 85730; 80053; 84484; 83880; 71045; 93010; J1644 ×2; J2270; J2405